=== PATIENT | male | born 1985 | race Caucasian/White ===

== ENCOUNTER 2025-03-26 19:23 | Emergency (ER) | payer MEDICARE ==
[2025-03-26 19:49] VITALS: BP 108/77; PULSE 60; RESP 18; TEMP 98.7; O2SAT 97
[2025-03-26 21:01] VITALS: BP 110/72; PULSE 58; RESP 18; O2SAT 98
[2025-03-26] MEDS ORDERED: TORADOL ONE (21:02)
[2025-03-26] MEDS: TORADOL IM STA (21:12)
[2025-03-26 21:18] LABS: INFLUENZA VIRUS A ANTIGEN NEGATIVE (NEG); INFLUENZA VIRUS B ANTIGEN NEGATIVE (NEG)
[2025-03-26 22:00] VITALS: BP 115/77; PULSE 64; RESP 18; O2SAT 98
[2025-03-26 23:02] VITALS: BP 116/78; PULSE 70; RESP 18; O2SAT 98
[2025-03-26 23:17] VITALS: BP 115/76; PULSE 72; RESP 18; TEMP 98.7; O2SAT 97
== END 2025-03-26 23:22 | disposition home or self-care (01) ==
LOC: ER 19:23
DX: R51.9 Headache, unspecified (principal); M79.18 Myalgia, other site; E11.9 Type 2 diabetes mellitus without complications; E78.00 Pure hypercholesterolemia, unspecified; I10 Essential (primary) hypertension; J44.9 Chronic obstructive pulmonary disease, unspecified; F12.90 Cannabis use, unspecified, uncomplicated; Z20.822 Contact with and (suspected) exposure to COVID-19
CPT/HCPCS: 99285; 96374; 70450; 87426; 87804 ×2; J1885